=== PATIENT | female | born 1965 | race Hispanic/Latino ===

== ENCOUNTER 2021-08-10 01:03 | Emergency (ER) | payer BC ==
[2021-08-10] MEDS ORDERED: Ketorolac Tromethamine 30 MG/ML VIAL ONE (02:01)
[2021-08-10] MEDS ORDERED: HYDROcodone/Acetaminophen 5/325 mg Tablet ONE (02:41)
== END 2021-08-10 02:54 | disposition home or self-care (01) ==
LOC: ERS 01:03
DX: R68.84 Jaw pain (principal); F17.210 Nicotine dependence, cigarettes, uncomplicated
CPT/HCPCS: 96372; 99283; J1885

== ENCOUNTER 2024-03-10 10:30 | Emergency (ER) | payer BC ==
[2024-03-10] MEDS ORDERED: Bupivacaine 0.25% 10 ML VIAL ONE (11:52)
== END 2024-03-10 12:16 | disposition home or self-care (01) ==
LOC: ERS 10:30
DX: R68.84 Jaw pain (principal); F17.210 Nicotine dependence, cigarettes, uncomplicated
CPT/HCPCS: 99282; J0665

== ENCOUNTER 2024-03-23 12:53 | Day surgery (SDC) | payer BC ==
[2024-03-23] MEDS ORDERED: Sodium Bicarbonate 2.5 MEQ/5 ML SDV ONE (13:10)
[2024-03-23] MEDS ORDERED: Lidocaine 1% PF 5 ML VIAL ONE (13:10)
== END 2024-03-23 15:30 | disposition home or self-care (01) ==
LOC: ULT 12:53
PROVIDERS: ATTEND Family Medicine
PROC: 0G9H3ZX Drainage of Right Thyroid Gland Lobe, Percutaneous Approach, Diagnostic (ICD-10-PCS; principal; 2024-03-23)
DX: E04.1 Nontoxic single thyroid nodule (principal); R51.9 Headache, unspecified; R03.0 Elevated blood-pressure reading, without diagnosis of hypertension
CPT/HCPCS: 10005; 88173; 88305

== ENCOUNTER 2025-05-20 10:04 | Outpatient (CLI) | payer BC ==
[2025-05-20 11:19] LABS: Estimated GFR - POC 103.0
== END 2025-05-20 10:05 | disposition home or self-care (01) ==
LOC: SCSMRI 10:04
PROVIDERS: ATTEND Otolaryngology Plastic Surgery within the Head & Neck
DX: D33.3 Benign neoplasm of cranial nerves (principal); G93.89 Other specified disorders of brain
CPT/HCPCS: 36415; 70553; 76376; 82565